=== PATIENT | male | born 1985 | race African-American/Black ===

== ENCOUNTER 2023-10-02 10:24 | Emergency (ER) | payer OTHER, SELFPAY ==
[2023-10-02 10:42] VITALS: BP 150/92
--- NOTE | 2023-10-02 11:34 | ED.GENMED ---
History of Present Illness
<Mónica Kumar PA-C - Last Filed: 10/03/23 10:30>
General
Chief Complaint: Skin Surface Trauma
Source: patient
Exam Limitations: none
Time Seen by Provider: 10/02/23 11:25
Nursing documentation reviewed up to this point in time: agreed with
Travel History
Have you had any contact with someone who has COVID-19?: No
Do you have any symptoms of coronavirus? Fever > 100 degrees, chills, cough, shortness of breath, sore throat, loss of taste or smell, muscle aches, or headache?: No
History of Present Illness
History of Present Illness:
Patient is a 38 year old male presenting for evaluation of laceration to left hand. He states that he was breaking down boxes with a box spring maker a few hours ago when he missed the box slicing his left hand. He reports a laceration to his palm near
base of thumb. He denies any numbness or tingling to left hand or digits. He has not noticed any decreased strength in wrist, fingers.
Unsure when his last tetanus shot was�she believes it was greater than 5 years ago.
Patient has no known drug allergies
Phy Exam
<Mónica Kumar PA-C - Last Filed: 10/03/23 10:30>
Physical Exam
Physical Exam:
General: Well appearing and non-toxic
Vitals: Hypertensive, otherwise vital signs stable, afebrile
HEENT: protecting airway
Neck: appears supple
CV: No evidence of cyanosis
Resp: No evidence of respiratory distress
Abd: Non-distended
Extremities: No deformities, laceration to left hand as described below left hand / digits neurovascularly intact
Neuro: alert and oriented x 3; grossly intact
Psych: Normal affect
Skin: Approximately 2cm linear laceration on left lateral thenar eminence; flexion and extension fully intact against resistance without any evidence of tendon involvement; left hand and digits neurovascularly intact
Course
<Mónica Kumar PA-C - Last Filed: 10/03/23 10:30>
Orders/Labs/Results
Orders:
Orders
10/02/23 11:41
Tetanus/Diphth/Acelpertussis [Adacel] 0.5 ml IM .ONCE ONE
Vital Signs
Initial and Last Documented VS:
Initial Vital Signs
Temp Pulse Resp BP Pulse Ox
97.8 F 63 20 150/92 96
10/02/23 10:42 10/02/23 10:42 10/02/23 10:42 10/02/23 10:42 10/02/23 10:42
Last Documented Vital Signs
Temp Pulse Resp BP Pulse Ox
97.8 F 63 20 150/92 96
10/02/23 10:42 10/02/23 10:42 10/02/23 10:42 10/02/23 10:42 10/02/23 10:42
<Koby Manning MD - Last Filed: 10/02/23 17:26>
Orders/Labs/Results
Orders:
Orders
10/02/23 11:41
Tetanus/Diphth/Acelpertussis [Adacel] 0.5 ml IM .ONCE ONE
Vital Signs
Initial and Last Documented VS:
Initial Vital Signs
Temp Pulse Resp BP Pulse Ox
97.8 F 63 20 150/92 96
10/02/23 10:42 10/02/23 10:42 10/02/23 10:42 10/02/23 10:42 10/02/23 10:42
Last Documented Vital Signs
Temp Pulse Resp BP Pulse Ox
97.8 F 63 20 150/92 96
10/02/23 10:42 10/02/23 10:42 10/02/23 10:42 10/02/23 10:42 10/02/23 10:42
Procedures
<Mónica Kumar PA-C - Last Filed: 10/03/23 10:30>
Laceration Closure
Left Hand:
Status of Wound: clean
Size of Wound in cm: 2
Description of Wound Edges: sharp
Preparation: cleaned with saline and cleaned with Betadine
Anesthesia: 1% Lidocaine with epi
Revision/Debridement: routine- no revision
Wound exploration: explored to base- no FB
Type of Closure: interrupted sutures
Skin Closure Material: 5-0 nylon
Number of sutures: 4
<Mónica Kumar PA-C - Last Filed: 10/03/23 10:30>
MDM/Problems Addressed
Differential Diagnosis Includes:
Laceration
MDM/Problems Addressed:
Patient is a 38 year old male presenting for evaluation of laceration to left hand. Occurred a few hours ago while breaking down boxes with box spring maker. Denies any numbness, tingling, weakness. He is hypertensive, otherwise stable vital signs.
Physical exam as documented above. Approximately 2cm linear laceration on left lateral thenar eminence without any tendon involvement. Left hand/digits neurovascularly intact. Will irrigate extensively and close with sutures. Update Tdap.
Anesthetized with local anesthesia. Wound irrigated extensively with normal saline. Closed with 4 simple interrupted 5-0 nylon sutures. Bleeding well controlled. Placed in thumb splint to limit movement and dressing applied. Sutures to be removed
in 1 week.
Patient stable. Laceration closed, bleeding controlled, neurovascularly intact. Stable for discharge. Wound care and return precautions discussed. Patient comfortable with this plan. All questions answered.
Chronic conditions affecting care:
N/A
Acute Exacerbation and/or Progression of Chronic Illness:
N/A
<Mónica Kumar PA-C - Last Filed: 10/03/23 10:30>
*Pulse Oximetry
Patient hypoxic: no
*Contract Administration Manager Interpretation
Rate: Contract Administration Manager- N/A
*Critical Care Note
Total Time (30-74mins, 75-104mins- exclusive of procedures): Not Applicable
ED Attending Note
<Mónica Kumar PA-C - Last Filed: 10/03/23 10:30>
-
Portions of this chart may have been created with voice recognition software.� Occasional wrong word or��sound alike� substitutions may have occurred due to the inherent limitations of voice recognition software.
<Koby Manning MD - Last Filed: 10/02/23 17:26>
ED Attending Note
Patient seen and examined by attending physician: Yes
ED Attending Note:
Pt presents to ED for thumb laceration with box spring maker prior to arrival. Tetanus up to date. No other injuries noted.
Skin: an approx 3cm superficial laceration at base of left thumb on superior aspect of thenar eminence, without active bleeding.
Wound well irrigated. Wound well approximated. Will f/u with pmd for re-evaluation and suture removal.
Discharge Plan
Departure
Patient Disposition: Home (Routine Discharge)
Date of Disposition: 10/02/23
Time of Disposition: 12:31
Patient with high blood pressure during this ER visit?: Yes
Condition: Good
Covid-19: Not Applicable
Discharge Problem:
Laceration
Instructions: Wound Care (DC), Laceration Repair With Stitches (DC), BLOOD PRESSURE
Referrals:
Yolanda Charles MD [Family Provider] -
Activity Restrictions/Additional Instructions:
-Return to the emergency department with any high fevers or signs of infection: Significant redness or swelling, red streaking waway from wound, pus drainage, severe pain or any other concerns
-As discussed you should have the stitches removed in 1 week. You can have this done at urgent care, primary care or emergency department
-Keep wound clean and dry. You should keep wound covered and splint on until stitches are removed. Try to limit movement
Interventions
Interventions:
*ED COVID-19 Vaccine History Last Done: 10/02/23 10:46
*Nursing Disposition Last Done: 10/02/23 12:53
ED-Skin Assessment Last Done: 10/02/23 12:07
Discharge Date and Time
Discharge Date/Time: 10/02/23 12:54
[2023-10-02] MEDS: ADACEL 0.5 ML IM (11:47)
== END 2023-10-02 12:54 | disposition home or self-care (01) ==
LOC: EMR 10:24
PROVIDERS: EMERGENCY PHYSICIAN Emergency Medicine; FAMILY PHYSICIAN Internal Medicine
DX: S61.412A Laceration without foreign body of left hand, initial encounter (principal); W26.9XXA Contact with unspecified sharp object(s), initial encounter; Z23 Encounter for immunization; R03.0 Elevated blood-pressure reading, without diagnosis of hypertension
CPT/HCPCS: 99283; 90471; 12001; 90715